=== PATIENT | male | born 1970 | race Caucasian/White ===

== ENCOUNTER 2025-05-28 15:40 | Emergency (ER) | payer BC, SELFPAY ==
[2025-05-28 15:50] VITALS: BP 147/90
[2025-05-28 16:21] LABS: Hematocrit 40.9 % (39.0-52.0); Hemoglobin 13.8 g/dL (13.0-18.0); Mean Corp Hgb Conc. 33.7 g/dL (33.0-37.0); Mean Corpuscular Volume 88.1 fL (80.0-94.0); Nucleated Red Blood Cells % 0 % (-); Platelet Count 232 10^3/uL (130-400); Red Cell Dist. Width 13.0 % (11.5-14.5)
[2025-05-28 16:35] LABS: ALT (SGPT) 22 U/L (0-50); AST (SGOT) 23 U/L (17-59); Albumin 4.7 g/dl (3.5-5.0); Alkaline Phosphatase 65 U/L (38-126); Blood Urea Nitrogen 20 mg/dl (9-20); Calcium 8.9 mg/dl (8.4-10.2); Carbon Dioxide 27 mmol/L (22-30); Chloride 103 mmol/L (98-107); Glucose 103 mg/dl (70-99); Potassium 4.1 mmol/L (3.5-5.1); Sodium 136 mmol/L (135-145); Total Protein 7.1 g/dl (6.3-8.2); eGFR > 60.00
[2025-05-28 16:46] LABS: Troponin I < 0.012 ng/ml
[2025-05-28 20:27] VITALS: BMI 26.8
[2025-05-28 20:31] VITALS: BP 159/82
[2025-05-28 20:53] VITALS: BP 156/80
[2025-05-28 21:00] VITALS: BP 148/77
[2025-05-28 22:00] VITALS: BP 146/89
[2025-05-28 22:21] LABS: D-Dimer < 0.27 ug/mlFEU (0.00-0.50)
[2025-05-28 22:28] LABS: Troponin I < 0.012 ng/ml
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
== END 2025-05-28 22:56 | disposition home or self-care (01) ==
LOC: EMR 15:40
PROVIDERS: Physician Assistant; Student in an Organized Health Care Education/Training Program; EMERGENCY PHYSICIAN Emergency Medicine; FAMILY PHYSICIAN Family Medicine
DX: R07.89 Other chest pain (principal); E78.00 Pure hypercholesterolemia, unspecified; I25.10 Atherosclerotic heart disease of native coronary artery without angina pectoris; Z79.82 Long term (current) use of aspirin; Z82.49 Family history of ischemic heart disease and other diseases of the circulatory system
CPT/HCPCS: 99283; 71101; 80053; 84484; 85025; 85379; 93005